=== PATIENT | male | born 1995 | race Caucasian/White ===

== ENCOUNTER 2023-05-09 14:44 | Emergency (ER) | payer SELFPAY ==
[~2023-05-09] VITALS: Ht 182.9 cm; Wt 90.0 kg
[2023-05-09 14:51] VITALS: BP 152/94; TEMP 97; O2SAT 97
[2023-05-09] MEDS ORDERED: BOOSTRIX VACCINE (TETANUS/DIPHTH/ACEL. PERTUSSIS) 0.5ML SYR IM ONE (15:45)
[2023-05-09] MEDS ORDERED: LIDOCAINE 1% MDV 20ML VIAL SC ONE (16:40)
[2023-05-09] MEDS ORDERED: KETOROLAC 30 MG/ML 1ML VIAL IM ONE (19:00)
[2023-05-09] MEDS ORDERED: NAPR-837 PO (20:38)
[2023-05-09] MEDS ORDERED: CEPH500C PO (20:38)
[2023-05-09] MEDS ORDERED: CEPHALEXIN 500 MG CAP PO ONE (20:45)
== END 2023-05-09 20:57 | disposition home or self-care (01) ==
LOC: EDBD 14:44 → M ED 14:44
DX: S61.210A Laceration without foreign body of right index finger without damage to nail, initial encounter (principal); S61.212A Laceration without foreign body of right middle finger without damage to nail, initial encounter; S66.110A Strain of flexor muscle, fascia and tendon of right index finger at wrist and hand level, initial encounter; S61.214A Laceration without foreign body of right ring finger without damage to nail, initial encounter; S61.216A Laceration without foreign body of right little finger without damage to nail, initial encounter; W26.0XXA Contact with knife, initial encounter; Y92.090 Kitchen in other non-institutional residence as the place of occurrence of the external cause; Y93.G1 Activity, food preparation and clean up; Z91.040 Latex allergy status; F17.200 Nicotine dependence, unspecified, uncomplicated; Z23 Encounter for immunization
CPT/HCPCS: 12002; 73130; 90471; 90715; 96372; 99284; J1885